=== PATIENT | female | born 1945 | race Caucasian/White ===

== ENCOUNTER 2017-06-09 12:55 | Emergency (ER) | payer MEDICARE ==
[~2017-06-09] VITALS: Ht 157.5 cm; Wt 71.0 kg
[2017-06-09 13:03] VITALS: BP 162/76; PULSE 67; RESP 14; TEMP 99.2; O2SAT 96
--- NOTE | 2017-06-09 13:17 | PD ---
HPI Chief Complaint: shoulder injury Time Seen by Provider: 13:08 Travel History International Travel<30 days: No Contact w/Intl Traveler<30days: No Traveled to known affect area: No History of Present Illness HPI The patient was seen and examined in the presence of the nurse. This patient complains of right shoulder pain. Worse with movement. Yesterday she tripped and fell and landed on it. No head injury. Symptoms severity is moderate. No alleviating factors. Duration one day PFSH Social History Alcohol Use: No Tobacco Use: No Substance Use: No Allergies-Medications Reported Meds & Prescriptions Reported Meds & Active Scripts Active Reported Rosuvastatin (Rosuvastatin Calcium) 5 Mg Tab 5 Mg PO DAILY Metformin (Metformin HCl) 500 Mg Tab 500 Mg PO DAILY With a meal Lisinopril 30 Mg Tab 30 Mg PO DAILY Review of Systems General / Constitutional: No: Fever Eyes: No: Visual changes HENT: No: Headaches Cardiovascular: No: Chest Pain or Discomfort Respiratory: No: Shortness of Breath Gastrointestinal: No: Abdominal Pain Genitourinary: No: Dysuria Musculoskeletal: Positive: Arthralgias, Limited ROM, Pain Skin: No Rash Neurologic: No: Weakness Psychiatric: No: Depression Endocrine: No: Polydipsia Hematologic/Lymphatic: No: Easy Bruising Physical Exam Narrative GENERAL: Well-nourished, well-developed patient in no apparent distress. SKIN: Focused skin assessment reveals no rash and nodules. Skin is Warm and dry. HEAD: Atraumatic. Normocephalic. EYES: Pupils equal and round. No scleral icterus. No injection or drainage. ENT: No nasal bleeding or discharge. Mucous membranes pink and moist. NECK: Trachea midline. No JVD. No midline tenderness CARDIOVASCULAR: Regular rate and rhythm. No murmur appreciated. RESPIRATORY: No accessory muscle use. Clear to auscultation. Breath sounds equal bilaterally. GASTROINTESTINAL: Abdomen soft, non-tender, nondistended. Hepatic and splenic margins not palpable. MUSCULOSKELETAL: No obvious deformities. No clubbing. No cyanosis. No edema. Decent range of motion but has pain in the right shoulder when abducting. No visible bruising or swollen. Neurovascularly intact right arm NEUROLOGICAL: Awake and alert. No obvious cranial nerve deficits. Motor grossly within normal limits. Normal speech. PSYCHIATRIC: Appropriate mood and affect; insight and judgment normal. Data Data Last Documented VS Vital Signs Date Time Temp Pulse Resp B/P Pulse Ox O2 Delivery O2 Flow Rate FiO2 06/09/17 13:03 99.2 67 14 162/76 96 Room Air Orders Shoulder, Complete (>2vws) (06/09/17 ) MDM Medical Decision Making Medical Screen Exam Complete: Yes Emergency Medical Condition: Yes Medical Record Reviewed: Yes Differential Diagnosis Fracture, dislocation, contusion Narrative Course I have reviewed the patient's electronic medical record. I reviewed her right shoulder x-rays which show no fracture or dislocation Given right arm sling Supportive care discussed Offered her medication but she declines and wants to use Tylenol The patient was advised to follow up with their physician and return if they worsen. Diagnosis Primary Impression: Soft tissue injury of right shoulder Qualified Code: S49.91XA - Soft tissue injury of right shoulder, initial encounter Additional Instructions: The patient was advised to follow up with their physician and return if they worsen. Wear sling Plan ice to right shoulder Med/Other Pt SpecificInfo: Other Disposition: 01 DISCHARGE HOME Condition: Stable Juancho Quiñones MD Jun 09, 2017 13:17
[2017-06-09] MEDS ORDERED: ROSU1TAB4 PO (13:34)
[2017-06-09] MEDS ORDERED: LISI30TA4 PO (13:34)
[2017-06-09] MEDS ORDERED: METF500T PO (13:34)
--- NOTE | 2017-06-09 14:07 | RADRPT ---
EXAM DATE/TIME: 06/09/2017 13:34 [facility] COMPARISON: No previous studies available for comparison. INDICATIONS : Fell has right shoulder pain and limited ROM MEDICAL HISTORY : None. SURGICAL HISTORY : None. ENCOUNTER: Initial ACUITY: 2 days PAIN SCORE: 10/10 LOCATION: Right shoulder FINDINGS: No fracture or subluxation seen in the right shoulder. There is mild osteoarthritis of both the acrom ioclavicular and glenohumeral joints. Radiographic appearance of the soft tissues within normal limit s. CONCLUSION: Intact right shoulder. Mild osteoarthritis. Nba Davila MD on June 09, 2017 at 14:05 Board Certified Radiologist. This report was verified electronically.
== END 2017-06-09 14:48 | disposition home or self-care (01) ==
LOC: PHED 12:55
DX: S49.91XA Unspecified injury of right shoulder and upper arm, initial encounter (principal); W01.0XXA Fall on same level from slipping, tripping and stumbling without subsequent striking against object, initial encounter
CPT/HCPCS: 73030; 99283